=== PATIENT | male | born 1960 | race Caucasian/White ===

== ENCOUNTER 2016-09-18 08:17 | Emergency (ER) | payer OTHER ==
[~2016-09-18] VITALS: Ht 175.3 cm; Wt 83.9 kg
[~2016-09-18 08:17] MED LIST: PERCOCET 325 MG1 TA2 PO
--- NOTE | 2016-09-18 08:47 | ED UPPER/LOWER EXTREMITY COMPL ---
History of Present Illness General Chief Complaint: Lower Extremity Injury Stated Complaint: RIGHT KNEE PAIN, S/P KNEELING Source: patient, old records Exam Limitations: no limitations Vital Signs & Intake/Output Vital Signs & Intake/Output Vital Signs Date Time Temp Pulse Resp B/P B/P Pulse O2 O2 Flow FiO2 Mean Ox Delivery Rate 09/18 1044 98.0 64 18 145/74 100 Room Air 09/18 0841 99 Room Air 09/18 0827 97.9 68 16 168/88 96 Room Air Allergies Coded Allergies: NSAIDS (Non-Steroidal Anti-Inflamma (GI BLEED 09/18/16) duloxetine (VISION 09/18/16) Uncoded Allergies: STEROID (UNKNOWN 09/18/16) Reconcile Medications No Known Home Medications Triage Note: PT STATES THAT HE WAS KNEELING AND WHEN HE WENT TO GET UP OFF FLOOR THIS AM HE COULD NOT BARE WEIGHT ON HIS LEG, STATES THAT HIS KNEE FEELS LIKE IT WANTS TO ROTATE. REFUSES MEDS AT TRIAGE Triage Nurses Notes Reviewed? yes HPI: Patient was kneeling earlier today and when he stood up he felt a pop in his right knee.. Then states that since then he's been having a throbbing pain to his right knee that worsens when a straight answer. Patient states he is able to straighten his knee just hurts to do so. There is no radiation of the pain. The pain is throbbing. He rates the pain at 8 out of 10. Patient denies any other injury. Past History Travel History Traveled to [place] past 21 day No Medical History Any Pertinent Medical History? 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 No Review of Systems Review of Systems Constitutional: Reports: no symptoms. Respiratory: Reports: no symptoms. Cardiovascular: Reports: no symptoms. Musculoskeletal: Reports: see HPI, joint pain. Neurological/Psychological: Reports: no symptoms. Immunological: Reports: no symptoms. Physical Exam Physical Exam General Appearance: well developed/nourished, alert, awake, moderate distress Head: atraumatic, normal appearance Eyes: Bilateral: PERRL, EOMI. Neck: normal inspection, supple, full range of motion Knee Right: normal range of motion, normal inspection Knee Ligaments Right: STABLE Neurologic/Tendon: normal sensation, normal motor functions, normal tendon functions Progress Differential Diagnosis: dislocation, fracture, sprain, tendon injury Plan of Care: Orders Procedure Date/time Status Durable Medical Equipment 09/18 1039 Active Diagnostic Imaging: Viewed by Me: Radiology Read. Discussed w/RAD: Radiology Read. Radiology Impression: PATIENT: SRI SUNG PRESENT AGE: 55 PATIENT ACCOUNT NO: [id number] : 60 LOCATION: [facility] ORDERING PHYSICIAN: SRI ESPOSITO MD SERVICE DATE: 09/18/16 EXAM TYPE: RAD - XRY-KNEE, RIGHT EXAMINATION: XR KNEE, RIGHT CLINICAL INFORMATION: Right knee pain. COMPARISON: None TECHNIQUE: Four views of the right knee. FINDINGS: Bones have normal alignment and the joint spaces are maintained. No acute fracture, subluxation or joint effusion. No radiographic evidence of degenerative or inflammatory arthropathy. There are no loose osteochondral bodies within the knee joint. IMPRESSION: The right knee is radiographically normal. DICTATED BY: MARS BATRES MD DATE/TIME DICTATED:09/18/161010 PHARMACY INNOVATION ASSISTANT:RANDI DATE/TIME TRANSCRIBED:09/18/161010 CONFIDENTIAL, DO NOT COPY WITHOUT APPROPRIATE AUTHORIZATION. <Electronically signed in Other Vendor System> SIGNED BY: MARS BATRES MD 09/18/16 1016 Departure Departure Disposition: HOME OR SELF CARE Condition: Stable Clinical Impression Primary Impression: Right knee sprain Qualifiers: Encounter type: initial encounter Involved ligament of knee: unspecified ligament Qualified Code: S83.91XA - Sprain of unspecified site of right knee, initial encounter Referrals: SHELBI GOTTLIEB,DEBBY BAXTER MD,IVANIA Whalen (PCP/Family) Additional Instructions: wear knee immobilizer for comfort return for any concerns Departure Forms: Customer Survey General Discharge Information Prescriptions: Current Visit Scripts No Known Home Medications
--- NOTE | 2016-09-18 10:16 | RADIOLOGY REPORT ---
EXAMINATION: XR KNEE, RIGHT CLINICAL INFORMATION: Right knee pain. COMPARISON: None TECHNIQUE: Four views of the right knee. FINDINGS: Bones have normal alignment and the joint spaces are maintained. No acute fracture, subluxation or joint effusion. No radiographic evidence of degenerative or inflammatory arthropathy. There are no loose osteochondral bodies within the knee joint. IMPRESSION: The right knee is radiographically normal.
[2016-09-18 10:44] VITALS: BP 145/74
== END 2016-09-18 10:49 ==
LOC: ERH 08:17
DX: S83.91XA Sprain of unspecified site of right knee, initial encounter (principal); X58.XXXA Exposure to other specified factors, initial encounter; Y93.89 Activity, other specified; Y92.9 Unspecified place or not applicable
CPT/HCPCS: 73560-RT